=== PATIENT | female | born 1985 | race Hispanic/Latino ===

== ENCOUNTER 2016-12-15 22:38 | Inpatient (IN) | payer BC, OTHER ==
[2016-12-15 23:25] VITALS: BMI 27.4
--- NOTE | 2016-12-15 23:35 | OBHP ---
Datetime: 12/15/2016 23:35 Admit Comment, IP Provider: IUP at 40w EDC Dec 15...c/o CTX since 5pm; increasing intensity and freq q 5m; no SROM; berenice VB; +FM PMH: denies PSH: denies NKA POBH: missed ab and TOP x 1 PGYNH: HPV PNC: [facility]argas Edmonds; records rev'd A: IUP at 40w early labor painful CTX P: Case d/w PMD will admit to L_D Discussion with patient about labor, deliveyr, pain management agumentation methods, and postpartu m care. Check CBC, HIV and RPR Presentation-Admit: Vertex FHR - Baseline A Provider: 130 IP Hx Assessment: The History has been Reviewed and is Current NICHD Variability Prov Fetus A: Moderate 6-25bpm NICHD Decel Fetus A IP Provider: None Datetime: 12/15/2016 23:15 IP Adm Impression: Term, intrauterine ; No Active Labor IP Admit Plan: Admit to unit Extremities - PN: Normal Abdomen - PN: Normal Back - PN: Normal Breast - PN: Not Done Lungs - PN: Normal Heart - PN: Normal Thyroid - PN: Normal Neurologic - PN: Normal HEENT - PN: Normal General - PN: Normal IP Fetus A Comments: Sonogram cephalic Membranes, Provider: Intact Comments, ACOG Physical Exam: ROS: General - no fatigue HEENT: No HOLCOMB; no visual disturbance CV: no CP; no palpitations RESP: No Cough; no SOB GI: No N/V/D : No F/U/D MS: no joint pain Pool Provider: Negative EGA AdmitDate IP: 40.4 IP Chief Complaint: Uterine contractions NICHD Accel Fetus A IP Provider: 15X15 FHR Category Provider Fetus A: Category I Dilatation, Provider: 1-2 Effacement, Provider: 50 Station, Provider: -2 Genitourinary Exam: Normal DTRs - PN: Normal
--- NOTE | 2016-12-15 23:37 | OBADHP ---
Datetime: 12/15/2016 23:35 Admit Comment, IP Provider: IUP at 40w EDC Dec 15...c/o CTX since 5pm; increasing intensity and freq q 5m; no SROM; berenice VB; +FM PMH: denies PSH: denies NKA POBH: missed ab and TOP x 1 PGYNH: HPV PNC: [facility] Vargas Edmonds; records rev'd A: IUP at 40w early labor painful CTX P: Case d/w PMD will admit to L_D Discussion with patient about labor, deliveyr, pain management agumentation methods, and postpartu m care. Check CBC, HIV and RPR Extremities - PN: Normal Abdomen - PN: Normal Back - PN: Normal Lungs - PN: Normal Heart - PN: Normal Thyroid - PN: Normal Neurologic - PN: Normal HEENT - PN: Normal General - PN: Normal Presentation-Admit: Vertex FHR - Baseline A Provider: 130 Membranes, Provider: Intact Comments, ACOG Physical Exam: ROS: General - no fatigue HEENT: No HOLCOMB; no visual disturbance CV: no CP; no palpitations RESP: No Cough; no SOB GI: No N/V/D : No F/U/D MS: no joint pain Pool Provider: Negative IP Hx Assessment: The History has been Reviewed and is Current IP Chief Complaint: Uterine contractions NICHD Variability Prov Fetus A: Moderate 6-25bpm NICHD Accel Fetus A IP Provider: 15X15 FHR Category Provider Fetus A: Category I NICHD Decel Fetus A IP Provider: None Dilatation, Provider: 1-2 Effacement, Provider: 50 Station, Provider: -2 Genitourinary Exam: Normal DTRs - PN: Normal EGA AdmitDate IP: 40.4 IP Adm Impression: Term, intrauterine ; No Active Labor; Intact Membranes IP Admit Plan: Admit to unit; Initiate labor protocol Datetime: 12/15/2016 23:15 Breast - PN: Not Done IP Fetus A Comments: Sonogram cephalic
[2016-12-16 00:06] LABS: HEMATOCRIT 36.6 % (34.0-47.0); MEAN CELL VOLUME 85.9 fl (81.0-99.0); MEAN CORPUSCULAR HEMOGLOBIN 28.1 pg (27.0-31.0); MEAN CORPUSCULAR HGB CONC 32.7 g/dL (33.0-37.0); MEAN PLATELET VOLUME 9.6 fl (7.2-11.7); NRBC % 0.1 % (0.0-0.0); PLATELET COUNT 245 K/uL (130-400); RED CELL DISTRIBUTION WIDTH 14.2 % (11.5-14.5); WHITE BLOOD COUNT 15.2 K/uL (4.8-10.8)
[2016-12-16 00:52] VITALS: BP 129/83; PULSE 80; RESP 18; TEMP 98.4
[2016-12-16 00:57] LABS: NEUT % 87.2 % (50.0-75.0)
[2016-12-16 00:58] LABS: EOS % 0.3 % (0.0-4.0); LYMPH % 7.5 % (20.0-40.0); MONO % 3.7 % (0.0-10.0)
[2016-12-16 00:59] LABS: BASO % 1.2 % (0.0-2.0)
[2016-12-16 01:00] LABS: NEUT # 13.3 K/uL (1.8-7.0)
[2016-12-16 01:01] LABS: LYMPH # 1.1 K/uL (1.0-4.3); MONO # 0.6 K/uL (0.0-0.8)
[2016-12-16] MEDS ORDERED: Fentanyl/Bupivacaine HCl 250 ML EPI ONE (03:09)
[2016-12-16] MEDS ORDERED: Bupivacaine HCl 0.25% PF (10 ml) Inj ONE (03:09)
[2016-12-16 05:07] LABS: NEUTROPHIL 89 % (42-75); TOTAL CELLS COUNTED 100
--- NOTE | 2016-12-16 07:47 | OBADHP ---
Datetime: 12/16/2016 07:40 Admit Comment, IP Provider: had epidural and cervical progress will start some pitocin Extremities - PN: Normal Abdomen - PN: Abnormal Breast - PN: Normal Lungs - PN: Normal Heart - PN: Normal Thyroid - PN: Normal Neurologic - PN: Normal HEENT - PN: Normal General - PN: Normal Presentation-Admit: cephalic FHR - Baseline A Provider: 140-150 Membranes, Provider: Intact Contraction Comments Provider: slightly irreg but strong Comments, ACOG Physical Exam: Abd gravid, NT, fundus at term, Ext no calf tenderness Gestation - Est Wks by US: 40w 5d IP Chief Complaint: Uterine contractions NICHD Variability Prov Fetus A: Moderate 6-25bpm NICHD Accel Fetus A IP Provider: 10X10 NICHD Decel Fetus A IP Provider: None Dilatation, Provider: 5cm Effacement, Provider: 90% Station, Provider: -2 Genitourinary Exam: Normal DTRs - PN: Normal EGA AdmitDate IP: 40.5 IP Adm Impression: Term, intrauterine ; Active labor IP Admit Plan: Admit to unit; Initiate labor protocol
[2016-12-16] MEDS: Lactated Ringer's 1,000 ML IV SCH ×2 (09:27→17:31)
--- NOTE | 2016-12-16 10:11 | OBPN ---
Datetime: 12/16/2016 07:40 IP Progress Impression: Normal progression of labor IP Procedures: Artificial ROM IP Progress Plan: Continue present management; Augmentation Membranes, Provider: Ruptured Amniotic Fluid Color, Provider: Clear Contraction Comments Provider: 3-5 min FHR - Baseline A Provider: 140-150 Gestation - Est Wks by US: 40w 5d Presentation-Admit: cephalic IP Progress Note Comment: progressing slowly, AROM done clear fluid and will continue augumentation with oxytocin. NICHD Accel Fetus A IP Provider: 10X10 NICHD Variability Prov Fetus A: Moderate 6-25bpm Dilatation, Provider: 7cm Effacement, Provider: 90% Station, Provider: -1/0 NICHD Decel Fetus A IP Provider: None Datetime: 12/15/2016 23:35 Pool Provider: Negative FHR Category Provider Fetus A: Category I Datetime: 12/15/2016 23:15 IP Fetus A Comments: Sonogram cephalic
[2016-12-16] MEDS ORDERED: Bupivacaine HCl 0.5% PF (30 ml) Inj ONE (14:56)
[2016-12-16] MEDS ORDERED: Lidocaine 1% Inj (20ml) ONE (19:06)
[2016-12-16] MEDS ORDERED: Chlorhexidine Gluconate 2OZ GEL TP ONE (19:27)
[2016-12-16] MEDS ORDERED: cefOXitin 2 GM in Sodium Chloride 0.9% 100 ML IVPB ONE (21:22)
[2016-12-16] MEDS ORDERED: Morphine 1 mg/ml preservative-free Inj(Duramorph) ONE (21:59)
[2016-12-16] MEDS ORDERED: Lidocaine 2% PF (10 ml) Amp ONE (23:28)
[2016-12-16] MEDS ORDERED: Oxycodone/Acetaminophen 5/325 mg Tab PO PRN (23:50)
--- NOTE | 2016-12-17 00:01 | OBDS ---
DELIVERY PERSONNEL Delivery Doctor: Annamaria Edmonds MD Scrub Nurse: Crissy Cruz Marine Design Engineer: Mariela Dunaway RN Anesthesiologist: Debra Resident: Scooby Reinoso MATERNAL INFORMATION Delivery Anesthesia: Epidural Medications in Delivery: Pitocin Maternal Complications: None Provider Comments: see dictated surgeons note LABOR SUMMARY EDC: 12/11/2016 00:00 No. Babies in Womb: 1 Attempted: No Labor Anesthesia: Epidural LABOR INFORMATION Reason for Induction: Not Applicable Onset of Labor: 12/15/2016 17:00 Complete Dilatation: 12/16/2016 16:50 Oxytocin: Augmentation Group B Beta Strep: Negative Steroids Given: None Reason Steroids Not Administered: Not Applicable MEMBRANES Membranes Rupture Method: Artificial Rupture of Membranes: 12/16/2016 10:05 Length of Rupture (hrs): 12.53 Amniotic Fluid Color: Clear Amniotic Fluid Amount: Moderate Amniotic Fluid Odor: Normal STAGES OF LABOR Stage 1 hrs: 23 Stage 1 min: 50 Stage 2 hrs: 5 Stage 2 min: 47 Stage 3 hrs: 0 Stage 3 min: 1 Total Time in Labor hrs: 29 Total Time in Labor min: 38 VAGINAL DELIVERY Sponge Count Correct: Yes CSECTION DELIVERY Primary Indication: Arrest of Descent Other Primary Indication: Maternal Exhaustion Secondary Indication: maternal request CSection Urgency: Elective CSection Incidence: Primary Labor: Labor Elective: Elective CSection Incision: Lower Uterine Transverse Uterine Closure: Double-layer closure BABY A INFORMATION Infant Delivery Date/Time: 12/16/2016 22:37 Method of Delivery: Born in Route : No : N/A Forceps: N/A Vacuum Extraction: N/A Shoulder Dystocia : No SHOULDER DYSTOCIA BABY A Infant Delivery Date/Time: 12/16/2016 22:37 PRESENTATION/POSITION BABY A Presentation: Cephalic Cephalic Presentation: Vertex Vertex Position: asynclitic PLACENTA INFORMATION BABY A Placenta Delivery Time : 12/16/2016 22:38 Placenta Method of Delivery: Expressed Placenta Status: Delivered SCORES BABY A Heart Rate 1 min: >100 bpm Resp Effort 1 min: Good Cry Reflex Irritability 1 min: Cough or Sneeze or Pulls Away Muscle Tone 1 min: Active Motion Color 1 min: Body [place], Extremities Blue Resuscitation Effort 1 min: Tactile Stimulation SCORE 1 MIN: 9 Heart Rate 5 min: >100 bpm Resp Effort 5 min: Good Cry Reflex Irritability 5 min: Cough or Sneeze or Pulls Away Muscle Tone 5 min: Active Motion Color 5 min: Body [place], Extremities Blue Resuscitation Effort 5 min: N/A SCORE 5 MIN: 9 INFORMATION BABY A Gestational Age at Delivery: 40.5 Gestational Status: Term Infant Outcome : Liveborn Condition : Stable Infant Sex: Female IDENTIFICATION/MEDS BABY A ID Band Number: [id number] ID Band Location: Left Leg; Left Arm WEIGHT/LENGTH BABY A Birthweight (gms): 3265 Infant Weight (lb): 7 Weight (oz): 3 CORD INFORMATION BABY A No. Cord Vessels: 3 Nuchal Cord : N/A Suction: Mouth; Nose ASSESSMENT BABY A Complications: Meconium Complications Other: late stage meconium Physical Findings at Delivery: Caput Succedaneum Infant Respirations: Intercostal Retractions Television Repairman/ALS Called : No Care By: Dr Leonardo / Lior BULL Transferred To: [facility]
[2016-12-17] MEDS ORDERED: DiphenhydrAMINE 50 mg/ml Inj IVP PRN ×2 (00:16→01:45)
[2016-12-17] MEDS ORDERED: cefOXitin Sodium 1 GM in Sodium Chloride 0.9% 100 ML IVPB SCH (01:00)
[2016-12-17] MEDS: cefOXitin Sodium 1 GM in Sodium Chloride 0.9% 100 ML IVPB SCH ×3 (06:03→22:03)
[2016-12-17 07:59] LABS: HEMATOCRIT 29.4 % (34.0-47.0); MEAN CELL VOLUME 86.1 fl (81.0-99.0); MEAN CORPUSCULAR HEMOGLOBIN 28.8 pg (27.0-31.0); MEAN CORPUSCULAR HGB CONC 33.4 g/dL (33.0-37.0); RED CELL DISTRIBUTION WIDTH 14.1 % (11.5-14.5); WHITE BLOOD COUNT 15.7 K/uL (4.8-10.8)
--- NOTE | 2016-12-17 09:25 | OBPPN ---
Datetime: 12/17/2016 09:14 PP Pain Prov: Within normal limits PP Pain Prov comment: Denies SOB, chest pains or leg pains PP Nausea Prov: Denies PP Flatus Prov: Yes PP BM Prov: No PP Nausea Prov comment: Denies C/F PP Breasts Prov: Normal PP Lungs Prov: Normal PP Abdomen/Uterus Prov: Abnormal PP Lochia Prov: Normal PP Vulva/Perineum Prov: Abnormal PP CVA Tenderness Prov: Normal PP Extremities Prov: Normal PP C/S Incision Prov: Normal PP Progress Prov: Normal PP Comments Phys Exam Prov: Abd soft not distended fundus firm at umb Dressing in place no active bl eeding. Perineum less swollen Ext no calf tenderness venodyne in place. Elias in place draining susana r fluid. PP Impression Prov: Normal progression PP Plan Prov: Continue present management PP Progress Note Prov: D/C elias, OOB to chair and help Increase diet as tolerated. Continue PO car e. IP PP Procedures: None
[2016-12-17] MEDS: Oxycodone/Acetaminophen 5/325 mg Tab PO PRN ×3 (09:58→20:50)
[2016-12-18] MEDS: cefOXitin Sodium 1 GM in Sodium Chloride 0.9% 100 ML IVPB SCH (06:09)
--- NOTE | 2016-12-18 08:18 | OBPPN ---
Datetime: 12/18/2016 08:10 PP Pain Prov: Within normal limits PP Pain Prov comment: denies SOB,chest pain, or leg pains PP Nausea Prov: Denies PP Flatus Prov: Yes PP BM Prov: No PP Breasts Prov: Normal PP Heart Prov: Normal PP Lungs Prov: Normal PP Abdomen/Uterus Prov: Abnormal PP Lochia Prov: Normal PP Vulva/Perineum Prov: Normal PP CVA Tenderness Prov: Normal PP Extremities Prov: Normal PP C/S Incision Prov: Normal PP Progress Prov: Normal PP Comments Phys Exam Prov: no breast engorment Abd soft not distended fundus firm below the umb. I ncision clean and dry no supp or discharge no active bleeding sutures and steady strip in place Ext no calf tenderness PP Impression Prov: Normal progression PP Plan Prov: Continue present management PP Progress Note Prov: OOB and ambulation, continue PO care IP PP Procedures: None Vital Signs Provider PP: Reviewed
[2016-12-18] MEDS: Oxycodone/Acetaminophen 5/325 mg Tab PO PRN ×2 (08:50→15:33)
[2016-12-18] MEDS ORDERED: Influenza Vaccine(5yr & older) 0.5 ML/45 MCG IM ONE (09:00)
[2016-12-19] MEDS: cefOXitin Sodium 1 GM in Sodium Chloride 0.9% 100 ML IVPB SCH (06:10)
--- NOTE | 2016-12-19 10:21 | OP ---
PROCEDURE DATE: 12/16/2016 PREOPERATIVE DIAGNOSES: 1. at 40+ weeks' gestation. 2. Active labor. 3. Arrest of decent. 4. Maternal exhaustion, 5. Maternal request. POSTOPERATIVE DIAGNOSES: 1. at 40+ weeks' gestation. 2. Active labor. 3. Arrest of decent. 4. Maternal exhaustion, 5. Maternal request. PROCEDURE PERFORMED: Primary low transverse segment section. SURGEON: Dr. Desmond Edmonds. PAPER SLITTER: Dr. Valente and Dr. Reinoso. Assistants were there for the entire duration of the case. Pipe Installer needed in order to aid in delivering the baby, opening up the abdomen and closure of the abdomen. ANESTHESIA USED: Epidural by Dr. Richardson. ESTIMATED BLOOD LOSS: 900 mL. DRAINS USED: None. REPLACEMENTS USED: None. FINDINGS: 1. Delivered a living baby girl. Baby appears term. Baby cries spontaneously. Pediatrics in attendance. score of 9 and 9. 2. Amniotic fluid light meconium stain, appears to be late stage meconium. 3. Placenta complete and intact. 4. Both tubes and ovaries appear grossly within normal limits to inspection bilaterally. 5. Left cervical laceration noted to be present on the left side, repaired using 0 chromic suture in a continuous interlocking manner without any complications. PROCEDURE: The patient was taken to the operating room and placed on the operating table in a supine position with an indwelling Rodríguez catheter in the bladder draining bloody urine. At this time, we then proceeded to augment the epidural anesthesia and the abdomen was then draped and prepped in the usual sterile manner. Venodyne boots had been applied to both legs. After testing anesthesia and found to be well secure, a Pfannenstiel incision was then made using sharp dissection 2 fingerbreadths above the symphysis pubis. The incision was then extended down to the subcutaneous tissue using sharp dissection. Hemostasis was obtained by means of electrocoagulation. At this time, we then proceeded to identify the fascia. Fascia was then entered at the midline using sharp dissection. Incision in the fascia was then extended laterally in each direction. Following this, we then proceeded to identify the rectus muscle which was then slit at the midline exposing the peritoneum. Peritoneal layer was then picked up using 2 Blessing clamps, retracted superiorly and then entered using sharp dissection. Incision in the peritoneum was then extended superiorly and inferiorly under direct visualization. The bladder was then identified, was then retracted inferiorly using the [place] retractor. At this time, the visceral peritoneum over the low transverse segment of the uterus was then entered and using blunt dissection, a bladder flap was then created and retracted inferiorly using the same [place] retractor. Following this, an incision was then made in the low transverse segment of the uterus. Upon entering the uterine cavity, the baby appeared to be in an asynclitic position. Using a manual scooping procedure, a living baby girl was then delivered. The baby was immediately and aggressively aspirated using the bulb suction. There was end stage meconium noted in the fluid following the baby. The umbilicus was then doubly clamped, cut and the baby handed to the pediatric staff that was standing by. Samples of cord blood were then obtained and the placenta was then delivered complete and intact. The uterus was then exteriorized to provide better visualization. The uterine cavity was then thoroughly cleaned using moist lap pads and the uterus was then massaged and contracted well. At this time, we then proceeded to secure the incision on the uterus using multiple T clamps. A laceration in the cervical area noted to be present on the left side which was then held using multiple [place]is clamps. The laceration was then repaired using 0 chromic suture in a continuous interlocking manner. Hemostasis checked and found to be well secure. The uterine incision was then approximated using 0 Vicryl suture in a continuous interlocking manner. At this stage, we then proceeded to note that hemostasis was stable and a second layer was also applied at the uterine incision using 0 Vicryl suture in a continuous manner. Again, hemostasis checked and found to be well secure. Following this, both tubes and ovaries appeared to be grossly within normal limits to inspection bilaterally. All operative areas checked, hemostatically secure and the bladder flap was then closed using 2-0 chromic suture in an interrupted manner. Following this, we then proceeded to replace the uterus back into its original position. Free amniotic fluid and blood were evacuated from the pelvic cavity. The pelvic cavity was then irrigated using copious amount of saline solution. All operative areas checked, hemostatically secure. Following this, we then proceeded to close the peritoneum using 0 Vicryl suture in a continuous manner. Rectus muscle was also approximated in the midline using 0 Vicryl suture in a continuous manner. Following this, we then proceeded to approximate the fascia using 1 Vicryl suture in a continuous manner. Fascia was then checked and found to be free of defect. Subcutaneous tissue was then irrigated using saline solution and approximated using several interrupted 2-0 plain sutures. The skin was then approximated using a 3-0 Prolene in a subcuticular fashion. Steri-Strips were then applied and sponge, instrument, and needle counts were correct x 3. Rodríguez catheter was draining at this time blood-tinged fluid and patient tolerated the procedure well. There were no complications. She was transferred to the recovery room in satisfactory condition. Desmond Edmonds MD cc: [id number] TT: 12/19/2016 10:21:10 tn MTDD
--- NOTE | 2016-12-19 11:31 | OBPPN ---
Datetime: 12/19/2016 11:25 PP Pain Prov: Within normal limits PP Nausea Prov: Denies PP Flatus Prov: Yes PP BM Prov: Yes PP Breasts Prov: Normal PP Heart Prov: Normal PP Lungs Prov: Normal PP Abdomen/Uterus Prov: Normal PP Lochia Prov: Normal PP Vulva/Perineum Prov: Normal PP CVA Tenderness Prov: Normal PP Extremities Prov: Normal PP C/S Incision Prov: Normal PP Progress Prov: Normal PP Impression Prov: Normal progression PP Plan Prov: Continue present management PP Progress Note Prov: stable pod3 dc home today rto 1week IP PP Procedures: None Vital Signs Provider PP: Reviewed; Within Normal Limits
--- NOTE | 2016-12-19 11:35 | OBDCSUM ---
Datetime: 12/19/2016 11:29 Discharged to, Provider: Home Follow up at, Provider: Disch Instr Activity: May be up to bathroom; May be up for meals; May Shower Disch Instr Diet: Regular Discharge Instructions, Provider: Specific instructions as noted Discharge Diagnosis, Provider: Term Delivered Follow up in weeks, Provider: 1week Disch Referrals: None Disch Activity Restrictions: No exercising; No lifting; No driving; Minimize walking; Minimize stair -climbing; No sexual activity; Nothing in vagina - [place], tampons, douche Discharge Comment, Provider: beryl home today rto 1week call qffice if any problems Contraception after Delivery: Undecided
== END 2016-12-19 13:35 | disposition home or self-care (01) | DRG 766 ==
LOC: H.EROB2 22:38 → H.L&D 23:27 → H.OB/GYN 12-17 02:15
PROVIDERS: ADMIT Specialist; ATTEND Specialist
PROC: 4A1HXCZ Monitoring of Products of Conception, Cardiac Rate, External Approach (ICD-10-PCS; 2016-12-15)
PROC: 10D00Z1 Extraction of Products of Conception, Low, Open Approach (ICD-10-PCS; principal; 2016-12-16)
DX: O75.81 Maternal exhaustion complicating labor and delivery (principal); O48.0 Post-term pregnancy; O62.1 Secondary uterine inertia; Z37.0 Single live birth; Z3A.40 40 weeks gestation of pregnancy; O77.0 Labor and delivery complicated by meconium in amniotic fluid